=== PATIENT | male | born 1955 | race Caucasian/White ===

== ENCOUNTER 2017-11-24 19:31 | Emergency (ER) | payer OTHER ==
[2017-11-24 21:19] VITALS: BP 170/93
--- NOTE | 2017-11-24 21:26 | ED HAND/WRIST INJURY COMPLAINT ---
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 STATES TETANUS NOT UTD. Triage Nurses Notes Reviewed? yes Occurred: just prior to arrival Duration: hour(s): (2), constant, continues in ED Timing: single episode today Injury Environment: home Severity: mild, moderate Severity Numbers: 2 Pain/Injury Location: Left: 1st finger. Context: laceration Method of Injury: laceration No Modifying Factors: none HPI: 62-year-old male history of hypertension presents for evaluation of a laceration to his left thumb. Patient states he was working on a table saw when his finger slipped. He reports a laceration to the distal left thumb with associated small nail injury. He denies any numbness or tingling. Bleeding was controlled to clean the area immediately. He is not up-to-date on tetanus. No other injuries. Past History Travel History Traveled to [place] past 21 day No Medical History Any Pertinent Medical History? see below for history Cardiovascular: hypertension Tetanus Vaccine: 11/24/17 Surgical History Surgical History: non-contributory Psychosocial History What is your primary language Occitan Tobacco Use: Quit >30 days ago Family History Hx Contributory? No Review of Systems Review of Systems Constitutional: Reports: no symptoms. EENTM: Reports: no symptoms. Respiratory: Reports: no symptoms. Cardiovascular: Reports: no symptoms. GI: Reports: no symptoms. Genitourinary: Reports: no symptoms. Musculoskeletal: Reports: no symptoms. Skin: Reports: see HPI (LACERATION). Neurological/Psychological: Reports: no symptoms. Hematologic/Endocrine: Reports: no symptoms. Immunologic/Allergic: Reports: no symptoms. All Other Systems: Reviewed and Negative Physical Exam Physical Exam General Appearance: well developed/nourished, no apparent distress, alert, awake , obese Head: atraumatic, normal appearance Eyes: Bilateral: normal appearance, EOMI. Ears, Nose, Throat: hearing grossly normal Neck: normal inspection, supple, full range of motion Cardiovascular/Respiratory: no respiratory distress Elbow Left: normal range of motion, normal inspection Elbow Right: normal range of motion, normal inspection Forearm Left: normal range of motion, normal inspection Forearm Right: normal range of motion, normal inspection Wrist Left: normal range of motion, normal inspection Wrist Right: normal range of motion, normal inspection Hand Left: normal range of motion, lacerations, nail injury, 1st finger, THERE IS A 0.5 CM SUPERFICIAL LINEAR LACERATION TO THE DISTAL SEGMENT OF THE LEFT THUMB. tHE LACERATION IS ON THE PALMAR ASPECT. tHERE IS A SLIGHT LACERATION TO THE NAIL. nO ACTIVE BLEEDING FULL RANGE MOTION INTACT rEFILL LESS THAN 2 SECONDS Hand Right: normal inspection, normal range of motion Neurologic/Tendon: normal sensation, normal motor functions, normal tendon functions, responds to pain, no evidence tendon injury, no pulse deficit Skin: intact, normal color, warm/dry Progress Differential Diagnosis: contusion, sprain, tenosynovitis, LACERATION, ABRASION Plan of Care: Current Medications Sig/Moira Start time Last Medication Dose Stop Time Status Admin Tetanus/Diphtheria 0.5 ML ONCE ONE 11/24 2114 UNVr 11/24 Toxoids Adsorbed 11/24 ([facility]) Patient seen and evaluated. He has superficial laceration to the left thumb. Neurovascular supply intact full range of motion intact. The area was cleaned with Betadine and sterile water. Steri-Strips used to approximate the wound sterile dressing applied. Discussed wound care procedures in detail tetanus was updated. Discussed return precautions patient agrees with the plan Departure Departure Disposition: HOME OR SELF CARE Condition: Stable Clinical Impression Primary Impression: Finger laceration Qualifiers: Encounter type: initial encounter Finger: thumb Damage to nail status: with damage Foreign body presence: without foreign body Laterality: left Qualified Code: S61.112A - Laceration without foreign body of left thumb with damage to nail, initial encounter Referrals: Trung Bills MD (PCP/Family) Additional Instructions: Keep area clean and dry change dressing once daily. Moro for signs of infection like redness swelling discharge or pain. The Steri-Strip to look awful Moron a few days. Monitor symptoms and return with any concerns. Departure Forms: Customer Survey General Discharge Information
== END 2017-11-24 21:36 ==
LOC: ERH 19:31
DX: S61.012A Laceration without foreign body of left thumb without damage to nail, initial encounter (principal); W27.0XXA Contact with workbench tool, initial encounter; Y92.009 Unspecified place in unspecified non-institutional (private) residence as the place of occurrence of the external cause; Y93.9 Activity, unspecified
CPT/HCPCS: 90471; 90714